=== PATIENT | female | born 1950 | race Caucasian/White ===

== ENCOUNTER 2019-05-12 10:43 | Inpatient (IN) ==
[2019-05-12] MEDS ORDERED: DEMEROL INJ IVP ONE ×2 (11:21→12:29)
[2019-05-12] MEDS ORDERED: ZOFRAN INJ 4 MG VIAL IVP ONE (11:21)
[2019-05-12] MEDS ORDERED: ZOFRAN INJ 4 MG VIAL ONE (11:33)
[2019-05-12] MEDS ORDERED: DEMEROL INJ ONE ×2 (11:35→12:27)
[2019-05-12 11:50] LABS: BASOPHILS % (AUTO) 0.3 % (0.2-1.0); EOSINOPHILS % (AUTO) 0.4 % (0.9-2.9); HEMATOCRIT 37.7 % (36.0-47.0); HEMOGLOBIN 12.4 g/dL (12.0-16.0); LYMPHOCYTES # (AUTO) 2.4 X10^3/uL (1.3-2.9); LYMPHOCYTES % (AUTO) 23.9 % (21.0-51.0); MEAN CORPUSCULAR HEMOGLOBIN 29.3 pg (27.0-34.0); MEAN CORPUSCULAR VOLUME 88.9 fL (80.0-100.0); MEAN PLATELET VOLUME 8.2 fL (7.4-11.0); MONOCYTES % (AUTO) 9.8 % (0.0-13.0); NEUTROPHILS # (AUTO) 6.7 x10^3/uL (2.2-4.8); NEUTROPHILS % (AUTO) 65.6 % (42.0-75.0); PLATELET COUNT 203 X10^3/uL (150.0-450.0); RED BLOOD COUNT 4.24 X10^6/uL (3.5-5.4); RED CELL DISTRIBUTION WIDTH 14.5 % (11.6-16.5); WHITE BLOOD COUNT 10.2 X10^3/uL (3.6-10.0)
--- NOTE | 2019-05-12 11:57 | ED.ABDFE ---
HPI Time Seen Time Seen by Provider: 05/12/19 11:15 PCP Primary Care Physician: kacy st Complaint Chief Complaint:: abd pain, nausea and vomiting started this am Self Treatment fo Chief Complaint: pheneragan, tramadol at 0230 this am Source History Provided: Patient Mode of arrival Mode of Arrival: Ambulatory Timing Onset of Chief Complaint: 05/12/19 PMH PMH Past Medical History: Yes Past Medical History: Diabetes and Hypertension Past Medical History Comment: fibromyalgia, spinal stenosis, osteoarthritis Past Surgical History: Yes Surgical History: Cholecystectomy Past Surgical History Comment: joint replacements, fracture, ankle fusion Family History History of Family Medical Conditions: No Social History Does patient currently use any type of tobacco product: No Have you used tobacco products in the last 12 months: No Type of Tobacco Use: None Does any household member use tobacco: No Do you use any recreational Drugs:: No infectious screening In the last 2 months have you had wt loss of >10#?: NO Have you had fever, night sweats or hemotysis?: No Have you traveled outside the country in the last 6 months?: No Isolation: Standard PE Vital Signs Vitals: Temperature 97.0 F Pulse Rate 61 Respiratory Rate 20 Blood Pressure 165/67 O2 Sat by Pulse Oximetry 97 ROR Labs Reviewed Result Diagrams: 05/12/19 11:40 05/12/19 11:40 Laboratory: WBC 10.2 X10^3/uL (3.6-10.0) H 05/12/19 11:40 RBC 4.24 X10^6/uL (3.5-5.4) 05/12/19 11:40 Hgb 12.4 g/dL (12.0-16.0) 05/12/19 11:40 Hct 37.7 % (36.0-47.0) 05/12/19 11:40 MCV 88.9 fL (80.0-100.0) 05/12/19 11:40 MCH 29.3 pg (27.0-34.0) 05/12/19 11:40 MCHC 33.0 g/dL (33.0-35.0) 05/12/19 11:40 RDW 14.5 % (11.6-16.5) 05/12/19 11:40 Plt Count 203 X10^3/uL (150.0-450.0) 05/12/19 11:40 MPV 8.2 fL (7.4-11.0) 05/12/19 11:40 Neut % (Auto) 65.6 % (42.0-75.0) 05/12/19 11:40 Lymph % (Auto) 23.9 % (21.0-51.0) 05/12/19 11:40 [place] % (Auto) 9.8 % (0.0-13.0) 05/12/19 11:40 Eos % (Auto) 0.4 % (0.9-2.9) L 05/12/19 11:40 Baso % (Auto) 0.3 % (0.2-1.0) 05/12/19 11:40 Neut # (Auto) 6.7 x10^3/uL (2.2-4.8) H 05/12/19 11:40 Lymph # (Auto) 2.4 X10^3/uL (1.3-2.9) 05/12/19 11:40 [place] # (Auto) 1.0 x10^3/uL (0.3-0.8) H 05/12/19 11:40 Eos # (Auto) 0.0 x10^3/uL (0.0-0.2) 05/12/19 11:40 Baso # (Auto) 0.0 X10^3/uL (0.0-0.1) 05/12/19 11:40 Absolute Nucleated RBC 0.0 /100WBC 05/12/19 11:40 Sodium 138 mmol/L (136-145) 05/12/19 11:40 Corrected Sodium 139 mmol/L (136-145) 05/12/19 11:40 Potassium 3.2 mmol/L (3.5-5.1) L 05/12/19 11:40 Chloride 102 mmol/L (98-107) 05/12/19 11:40 Carbon Dioxide 29.0 mmol/L (21-32) 05/12/19 11:40 BUN 16 mg/dL (7-18) 05/12/19 11:40 Creatinine 1.00 mg/dL (0.55-1.02) 05/12/19 11:40 Est GFR (MDRD) Af Amer > 60 (>60) 05/12/19 11:40 Est GFR (MDRD) Non-Af 58 (>60) L 05/12/19 11:40 Glucose 144 mg/dL (65-99) H 05/12/19 11:40 Calcium 8.9 mg/dL (8.5-10.1) 05/12/19 11:40 Corrected Calcium 9.6 mg/dL (8.5-10.1) 05/12/19 11:40 Total Bilirubin 0.70 mg/dL (0.2-1.0) 05/12/19 11:40 AST 18 Units/L (15-37) 05/12/19 11:40 ALT 23 Units/L (12-78) 05/12/19 11:40 Alkaline Phosphatase 95 Units/L (46-116) 05/12/19 11:40 Creatine Kinase 23 Units/L (26-192) L 05/12/19 11:40 CK-MB (CK-2) < 1.0 ng/mL (0-4.0) 05/12/19 11:40 CK/CKMB % Calc 4.4 % (<4) 05/12/19 11:40 Troponin I < 0.02 ng/mL (0-1.5) 05/12/19 11:40 Total Protein 6.7 g/dL (6.4-8.2) 05/12/19 11:40 Albumin 3.1 g/dL (3.4-5.0) L 05/12/19 11:40 Globulin 3.6 g/dL (2.5-4.5) 05/12/19 11:40 Albumin/Globulin Ratio 0.9 Ratio (1.1-2.1) L 05/12/19 11:40 Amylase > 650 Units/L (25-115) H 05/12/19 11:40 Lipase > 1500 Units/L (73-393) H 05/12/19 11:40 Opioid Opioid Risk Tool Age (Phi box if 16-45): No History of Preadolescent Sexual Abuse: No Total: 0 Total Score Risk Category: Low Risk Copyright: Dmitry BERGMAN predicting aberrant behaviors Diagnosis Discharge Problem: Acute pancreatitis Qualifiers: Pancreatitis type: unspecified pancreatitis type Acute pancreatitis complication: unspecified Qualified Code(s): K85.90 - Acute pancreatitis without necrosis or infection, unspecified Abdominal pain Qualifiers: Abdominal location: generalized Qualified Code(s): R10.84 - Generalized abdominal pain Instructions Forms: Excuse From Work Patient Portal
[2019-05-12 12:05] LABS: BLOOD UREA NITROGEN 16 mg/dL (7-18); CALCIUM 8.9 mg/dL (8.5-10.1); CHLORIDE 102 mmol/L (98-107); COR NA(FOR HYPERGLY) 139 mmol/L (136-145); SODIUM 138 mmol/L (136-145); TROPONIN I < 0.02 ng/mL (0-1.5); eGFR NON BLACK RACES 58 (>60)
--- NOTE | 2019-05-12 12:08 | CT ---
History: Abdominal pain with nausea and vomiting Study: CT abdomen and pelvis without contrast. Sagittal and coronal reformations were provided. Dose reduction techniques were utilized. Comparison: None Findings: The visualized lung bases are grossly clear. The gallbladder surgically absent. The liver and spleen and pancreas and adrenal glands are unremarkable. There is a small punctate calculus in the lower pole of the right kidney and a punctate calculus in the upper pole. There is a tiny punctate calculus in the upper pole of the left kidney. There is no hydronephrosis. Ureters are nondilated. There is no biliary dilatation. I do not visualize an abnormal appendix. There is no bowel distention. The uterus is unremarkable. There is no adnexal mass. There is no ascites or adenopathy. No significant diverticular disease is demonstrated. There is a small fat containing paraumbilical hernia. This is toward the left of midline through a defect measuring 1.6 cm width. There is diffuse lumbar degenerative disc disease relatively severe. The urinary bladder is unremarkable. Impression: Small left periumbilical fat containing ventral hernia Tiny punctate renal calculi without hydronephrosis Reported By:
[2019-05-12 12:10] LABS: ALANINE AMINOTRANSFERASE 23 Units/L (12-78); ALBUMIN 3.1 g/dL (3.4-5.0); ALKALINE PHOSPHATASE 95 Units/L (46-116); ASPARTATE AMINO TRANSFERASE 18 Units/L (15-37); CKMB % 4.4 % (<4); COR CA(FOR HYPOALB) 9.6 mg/dL (8.5-10.1); CREATINE KINASE 23 Units/L (26-192); CREATINE KINASE MB < 1.0 ng/mL (0-4.0); TOTAL PROTEIN 6.7 g/dL (6.4-8.2)
[2019-05-12] MEDS ORDERED: DEMEROL INJ IVP PRN (13:56)
[2019-05-12] MEDS ORDERED: INVANZ INJ 1 GM VIAL ONE (14:13)
[2019-05-12] MEDS ORDERED: NS 100 ML IV 100 ML IV ONE (14:13)
[2019-05-12] MEDS: INVANZ INJ 1 GM VIAL 0.5 GM in NS 50 ML IV 50 ML IV SCH ×2 (14:18→21:22)
[2019-05-12] MEDS: NS + KCL 20 MEQ/L 1,000 ML IV SCH (14:18)
[2019-05-12] MEDS ORDERED: PEPCID 20 MG IV PREMIX* 20 MG/50 ML BAG IV PRN (14:58)
[2019-05-12] MEDS ORDERED: MAGNESIUM SULFATE 1 GRAM/100 mL PREMIX 1 GM/100 ML BAG IV PRN (15:19)
[2019-05-12] MEDS: MORPHINE SULFATE INJ 2 MG INJ IVP PRN ×2 (15:42→19:30)
[2019-05-12 17:17] VITALS: BMI 35.4
--- NOTE | 2019-05-12 17:24 | DR.H&P ---
H&P - History & Physical for Day of: H&P Date: 05/12/19 - Chief Complaint Chief Complaint: NAUSEA, VOMITING, ABDOMINAL PAIN - History of Present Illness History of Present Illness: IS A 69 YEAR OLD PATIENT OF OURS WHO PRESENTED TO THE HOSPITAL WITH COMPLAINTS OF NAUSEA, VOMITING, AND ABDOMINAL PAIN. SYMPTOMS REPORTEDLY STARTED AROUND 2AM TODAY. ON ARRIVAL, VITALS WERE 97.0-60-20-100%-163/72. LABS WERE OBTAINED. ABNORMAL LAB VALUES INCLUDE THE FOLLOWING: WBC 10.2, POTASSIUM 3.2, GLUCOSE 144, MAGNESIUM 1.6, CREATINE KINASE 23, ALBUMIN 3.1, AMYLASE >650, LIPASE >1500. AN EKG WAS OBTAINED AND REVEALED: SINUS RHYTHM WITH HR 57. AN ABDOMEN/PELVIS CT WAS OBTAINED AND REVEALED: Small left periumbilical fat containing ventral hernia. Tiny punctate renal calculi without hydronephrosis. SHE WAS GIVEN DEMEROL 25MG IV X 2 DOSES AND ZOFRAN 4MG IV X 1 DOSE. SHE WAS ADMITTED TO THE HOSPITAL FOR FURTHER EVALUATION AND TREATMENT OF ACUTE PANCREATITIS AND ABDOMINAL PAIN. SHE WAS STARTED ON NORMAL SALINE WITH 20MEQ KCL AT 125ML/HR, PEPCID 20MG IV BID, MORPHINE SULGATE 1-2MG IV Q4H PRN PAIN, ZOFRAN 4MG IV Q6H PRN NAUSEA, AND INVANZ 0.5MG IV Q12H. WE WILL ALSO START THE POTASSIUM AND MAGNESIUM PROTOCOLS. WE WILL OBTAIN A URINALYSIS. OTHERWISE, WE WILL FOLLOW UP WITH AM LABS AND CONTINUE TO MONITOR. - Past Medical History Past Medical History: Hypertension, Diabetes - Past Surgical History Surgical History: Cholecystectomy, Ortho Surgery, Other - Family History Family Medical History: Diabetes Mellitus, Cancer, [place], Sudden Cardiac , Hypertension - Social History Does patient currently use any type of tobacco product: No Have you used tobacco products in the last 12 months: No Type of Tobacco Use: None Does any household member use tobacco: No Alcohol Use: None Drug Use: None Prescription drug monitoring program results: PDMP was not reviewed - Medications Home Medications: codeine Allergy (Verified 05/12/19 10:53) hydrocodone Allergy (Verified 05/12/19 10:53) iodine Allergy (Verified 05/12/19 10:53) latex Allergy (Verified 05/12/19 10:53) oxycodone Allergy (Verified 05/12/19 10:53) CONTINUE taking the following medications buspirone 10 mg PO BID 05/12/19 [History] cholecalciferol (vitamin D3) [Vitamin D3] unit 05/12/19 [History] duloxetine [Cymbalta] mg PO 05/12/19 [History] esomeprazole magnesium [Nexium] mg 05/12/19 [History] eszopiclone [Lunesta] mg 05/12/19 [History] fentanyl 05/12/19 [History] furosemide [Lasix] 05/12/19 [History] ibuprofen 05/12/19 [History] metformin 500 mg PO BID 05/12/19 [History] ondansetron HCl [Zofran] 05/12/19 [History] paroxetine HCl [Paxil] 20 mg PO QAM 05/12/19 [History] prednisone 05/12/19 [History] sucralfate [Carafate] 05/12/19 [History] tramadol-acetaminophen [Ultracet] tab 05/12/19 [History] valsartan-hydrochlorothiazide [Diovan HCT] tab 05/12/19 [History] - Review of Systems Constitutional: Weakness Eyes: No Symptoms Reported ENT: No Symptoms Reported Respiratory: No Symptoms Reported Cardiovascular: No Symptoms Reported Gastrointestinal: See HPI, Nausea, Vomiting, Abdominal Pain Genitourinary: No Symptoms Reported Musculoskeletal: No Symptoms Reported Skin: No Symptoms Reported Neurological: No Symptoms Reported - Physical Exam Vital Signs: Temperature 98.7 F Pulse Rate [Left Brachial] 70 Pulse Rate 61 Respiratory Rate 18 Blood Pressure [Left Arm] 118/57 Blood Pressure 165/67 O2 Sat by Pulse Oximetry 95 Oriented: Normal Eyes: Normal Ear: Normal Nose: Normal Throat: Normal Respiratory: Diminished Throughout Cardiovascular: Normal. negative: S3, S4, Murmur : Normal Auscultation: Bowel Sounds: Normal Palpation: Normal Tenderness: Diffuse, Moderate. negative: Rebound, Guarding, Rigidity Skin: Normal Musculoskeletal: Normal Psychiatric: Normal Mood Description: Calm Affect: Normal Speech Pattern: Clear - Assessment/Plan (1) Acute pancreatitis Qualifiers: Pancreatitis type: unspecified pancreatitis type Acute pancreatitis compl ication: unspecified Qualified Code(s): K85.90 - Acute pancreatitis without necrosis or infection, unspecified Status: Acute Plan: ADMIT, NORMAL SALINE WITH 20MEQ KCL AT 125ML/HR, PEPCID 20MG IV BID, MORPHINE SULFATE 1-2MG IV Q4H PRN PAIN, ZOFRAN 4MG IV Q6H PRN NAUSEA, AND INVANZ 0.5MG IV Q12H (2) Abdominal pain Qualifiers: Abdominal location: generalized Qualified Code(s): R10.84 - Generalized abdominal pain Status: Acute - Allergies Allergies/Adverse Reactions: Allergies Allergy/AdvReac Type Severity Reaction Status Date / Time codeine Allergy Verified 05/12/19 10:53 hydrocodone Allergy Verified 05/12/19 10:53 iodine Allergy Verified 05/12/19 10:53 latex Allergy Verified 05/12/19 10:53 oxycodone Allergy Verified 05/12/19 10:53
[2019-05-12] MEDS ORDERED: MORPHINE SULFATE INJ 2 MG INJ IVP PRN (19:46)
[2019-05-12] MEDS: ZOFRAN INJ 4 MG VIAL IVP PRN (22:00)
[2019-05-12 23:14] LABS: BILIRUBIN,URINE NEGATIVE (NEGATIVE); BLOOD/HEMOGLOBIN,URINE 1+ (NEGATIVE); GLUCOSE, URINE NEGATIVE (NEGATIVE); KETONES,URINE 1+ (NEGATIVE); LEUKOCYTE ESTERASE ,URINE 1+ (NEGATIVE); NITRITES,URINE NEGATIVE (NEGATIVE); PROTEIN,URINE 2+ (NEGATIVE); UROBILINOGEN,URINE NORMAL (NORMAL)
[2019-05-12 23:20] LABS: APPEARANCE,URINE CLEAR (CLEAR); BACTERIA,URINE NEGATIVE /HPF (NEGATIVE); COLOR,URINE AMBER (YELLOW); SQUAMOUS EPITHELIAL CELL,UR RARE /HPF (NEGATIVE)
[2019-05-13] MEDS ORDERED: ULTRAM ONE (01:49)
[2019-05-13] MEDS: NS + KCL 20 MEQ/L 1,000 ML IV SCH ×3 (01:50→14:27)
[2019-05-13] MEDS: ULTRAM PO PRN ×2 (02:03→13:16)
[2019-05-13 05:15] LABS: BASOPHILS % (AUTO) 0.3 % (0.2-1.0); EOSINOPHILS # (AUTO) 0.1 x10^3/uL (0.0-0.2); EOSINOPHILS % (AUTO) 0.4 % (0.9-2.9); HEMATOCRIT 33.2 % (36.0-47.0); HEMOGLOBIN 11.4 g/dL (12.0-16.0); LYMPHOCYTES # (AUTO) 1.9 X10^3/uL (1.3-2.9); LYMPHOCYTES % (AUTO) 13.6 % (21.0-51.0); MEAN CORPUSCULAR HEMOGLOBIN 33.4 pg (27.0-34.0); MEAN CORPUSCULAR HGB CONC 34.3 g/dL (33.0-35.0); MEAN CORPUSCULAR VOLUME 97.3 fL (80.0-100.0); MONOCYTES # (AUTO) 1.4 x10^3/uL (0.3-0.8); MONOCYTES % (AUTO) 10.3 % (0.0-13.0); NEUTROPHILS # (AUTO) 10.3 x10^3/uL (2.2-4.8); NEUTROPHILS % (AUTO) 75.4 % (42.0-75.0); PLATELET COUNT 184 X10^3/uL (150.0-450.0); RED BLOOD COUNT 3.42 X10^6/uL (3.5-5.4); RED CELL DISTRIBUTION WIDTH 14.8 % (11.6-16.5); WHITE BLOOD COUNT 13.7 X10^3/uL (3.6-10.0)
[2019-05-13 05:35] LABS: ALANINE AMINOTRANSFERASE 24 Units/L (12-78); ALBUMIN 2.5 g/dL (3.4-5.0); ALKALINE PHOSPHATASE 93 Units/L (46-116); AMYLASE 160 Units/L (25-115); ASPARTATE AMINO TRANSFERASE 29 Units/L (15-37); BLOOD UREA NITROGEN 15 mg/dL (7-18); CARBON DIOXIDE 23.6 mmol/L (21-32); CHLORIDE 105 mmol/L (98-107); COR CA(FOR HYPOALB) 9.2 mg/dL (8.5-10.1); CREATININE 0.99 mg/dL (0.55-1.02); LIPASE 433 Units/L (73-393); SODIUM 138 mmol/L (136-145); TOTAL PROTEIN 5.9 g/dL (6.4-8.2); eGFR NON BLACK RACES 59 (>60)
[2019-05-13 07:48] LABS: AMYLASE 905 Units/L (25-115)
[2019-05-13 07:49] LABS: LIPASE 8699 Units/L (73-393)
[2019-05-13] MEDS: OFIRMEV IV 1000 MG VIAL 1,000 MG/100 ML VIAL IV PRN ×3 (07:52→21:00)
[2019-05-13] MEDS: PROTONIX INJ 40 MG VIAL IVP SCH ×2 (09:13→20:42)
[2019-05-13] MEDS: PEPCID 20 MG IV PREMIX* 20 MG/50 ML BAG IV SCH ×2 (09:13→20:42)
[2019-05-13] MEDS ORDERED: PHARMACY CONSULT - DOSE _____ XX SCH (10:00)
[2019-05-13] MEDS: INVANZ INJ 1 GM VIAL 0.5 GM in NS 50 ML IV 50 ML IV SCH ×2 (10:30→20:42)
[2019-05-13] MEDS ORDERED: DEMEROL INJ IVP PRN (11:08)
[2019-05-13] MEDS ORDERED: DILAUDID INJ IVP PRN (13:36)
[2019-05-13] MEDS: ZOFRAN INJ 4 MG VIAL IVP PRN (19:19)
--- NOTE | 2019-05-13 20:49 | PCM.PROG ---
Progress Note - Progress Note for Day of Date of Exam: 05/13/19 - Subjective Subjective: WAS ADMITTED FOR ACUTE PANCREATITIS. TODAY, SHE IS ALERT AND ORIENTED, LYING IN BED ON MORNING ROUNDS. SHE CONTINUES WITH COMPLAINTS OF ABDOMINAL PAIN THIS MORNING, BUT REPORTS IMPROVEMENT SINCE ADMISSION. ON EXAMINATION, HEART IS REGULAR IN RATED AND RHYTHM. BILATERAL LUNGS ARE NOTED WITH DIMINISHED LUNG SOUNDS THROUGHOUT. ABDOMEN IS ROUND, SOFT, AND NOTED WITH DIFFUSE TENDERNESS. NORMAL BOWEL SOUNDS ARE NOTED IN ALL QUADRANTS. HER VITALS THIS MORNING ARE: 98.3-76-18-93%-136/68. LABS WERE OBTAINED. ABNORMAL LAB VALUES INCLUDE THE FOLLOWING: WBC 13.7, RBC 3.42, HGB 11.4, HCT 33.2, GLUCOSE 107, CALCIUM 8.0, TOTAL PROTEIN 5.9, ALBUMIN 2.5, AMYLASE 160, LIPASE 433. SHE IS CURRENTLY RECEIVING NORMAL SALINE WITH 20MEQ KCL AT 125ML/HR, PEPCID 20MG IV BID, MORPHINE SULFATE 1-2MG IV Q4H PRN PAIN, ZOFRAN 4MG IV Q6H PRN NAUSEA, AND INVANZ 0.5MG IV Q12H. WE WILL CONTINUE WITH CURRENT PLAN OF CARE TODAY AND START A CLEAR LIQUID DIET. OTHERWISE, WE WILL CONTINUE WITH CURRENT PLAN OF CARE TODAY. WE WILL FOLLOW UP WITH AM LABS AND CONTINUE TO MONITOR. - Past Medical Family Social History Past Med/Fam/Surg Hx: No changes since H&P Allergies: Allergies codeine Allergy (Verified 05/12/19 10:53) hydrocodone Allergy (Verified 05/12/19 10:53) iodine Allergy (Verified 05/12/19 10:53) latex Allergy (Verified 05/12/19 10:53) oxycodone Allergy (Verified 05/12/19 10:53) - Review of Systems ROS: No change since H&P - Vital Signs and I&O's Vital Signs: Temperature 98.0 F Pulse Rate [Left Brachial] 73 Pulse Rate 61 Respiratory Rate 18 Blood Pressure [Left Arm] 135/61 Blood Pressure 165/67 O2 Sat by Pulse Oximetry 93 Intake and Output: Intake & Output 05/11/19 05/12/19 05/13/19 05/14/19 11:59 11:59 11:59 11:59 Intake Total 520 / 520 1620 / 1620 Output Total 2 / 2 325 / 325 Balance 518 / 518 1295 / 1295 - Physical Exam Oriented: Normal Eyes: Normal Ear: Normal Nose: Normal Throat: Normal Respiratory: Generalized, Diminished Cardiovascular: Normal. negative: S3, S4, Murmur : Normal Auscultation: Bowel Sounds: Normal Palpation: Normal Tenderness: Diffuse, Mild. negative: Rebound, Guarding, Rigidity Skin: Normal Musculoskeletal: Normal Psychiatric: Normal Mood Description: Calm Affect: Normal Speech Pattern: Clear, Appropriate - Laboratory and Diagnostics Result Diagrams: 05/13/19 04:28 05/13/19 04:28 Labs: Laboratory WBC 13.7 X10^3/uL (3.6-10.0) H 05/13/19 04:28 RBC 3.42 X10^6/uL (3.5-5.4) L 05/13/19 04:28 Hgb 11.4 g/dL (12.0-16.0) L 05/13/19 04:28 Hct 33.2 % (36.0-47.0) L 05/13/19 04:28 MCV 97.3 fL (80.0-100.0) 05/13/19 04:28 MCH 33.4 pg (27.0-34.0) 05/13/19 04:28 MCHC 34.3 g/dL (33.0-35.0) 05/13/19 04:28 RDW 14.8 % (11.6-16.5) 05/13/19 04:28 Plt Count 184 X10^3/uL (150.0-450.0) 05/13/19 04:28 MPV 9.0 fL (7.4-11.0) 05/13/19 04:28 Neut % (Auto) 75.4 % (42.0-75.0) H 05/13/19 04:28 Lymph % (Auto) 13.6 % (21.0-51.0) L 05/13/19 04:28 [place] % (Auto) 10.3 % (0.0-13.0) 05/13/19 04:28 Eos % (Auto) 0.4 % (0.9-2.9) L 05/13/19 04:28 Baso % (Auto) 0.3 % (0.2-1.0) 05/13/19 04:28 Neut # (Auto) 10.3 x10^3/uL (2.2-4.8) H 05/13/19 04:28 Lymph # (Auto) 1.9 X10^3/uL (1.3-2.9) 05/13/19 04:28 [place] # (Auto) 1.4 x10^3/uL (0.3-0.8) H 05/13/19 04:28 Eos # (Auto) 0.1 x10^3/uL (0.0-0.2) 05/13/19 04:28 Baso # (Auto) 0.0 X10^3/uL (0.0-0.1) 05/13/19 04:28 Absolute Nucleated RBC 0.0 /100WBC 05/13/19 04:28 Sodium 138 mmol/L (136-145) 05/13/19 04:28 Corrected Sodium TNP 05/13/19 04:28 Potassium 4.0 mmol/L (3.5-5.1) 05/13/19 04:28 Chloride 105 mmol/L (98-107) 05/13/19 04:28 Carbon Dioxide 23.6 mmol/L (21-32) 05/13/19 04:28 BUN 15 mg/dL (7-18) 05/13/19 04:28 Creatinine 0.99 mg/dL (0.55-1.02) 05/13/19 04:28 Est GFR (MDRD) Af Amer > 60 (>60) 05/13/19 04:28 Est GFR (MDRD) Non-Af 59 (>60) 05/13/19 04:28 Glucose 107 mg/dL (65-99) H 05/13/19 04:28 POC Glucose (mg/dL) 110 mg/dL (65-99) H 05/13/19 16:55 Calcium 8.0 mg/dL (8.5-10.1) L 05/13/19 04:28 Corrected Calcium 9.2 mg/dL (8.5-10.1) 05/13/19 04:28 Magnesium 1.6 mg/dL (1.7-2.9) L 05/12/19 11:40 Total Bilirubin 0.70 mg/dL (0.2-1.0) 05/13/19 04:28 AST 29 Units/L (15-37) 05/13/19 04:28 ALT 24 Units/L (12-78) 05/13/19 04:28 Alkaline Phosphatase 93 Units/L (46-116) 05/13/19 04:28 Creatine Kinase 23 Units/L (26-192) L 05/12/19 11:40 CK-MB (CK-2) < 1.0 ng/mL (0-4.0) 05/12/19 11:40 CK/CKMB % Calc 4.4 % (<4) 05/12/19 11:40 Troponin I < 0.02 ng/mL (0-1.5) 05/12/19 11:40 Total Protein 5.9 g/dL (6.4-8.2) L 05/13/19 04:28 Albumin 2.5 g/dL (3.4-5.0) L 05/13/19 04:28 Globulin 3.4 g/dL (2.5-4.5) 05/13/19 04:28 Albumin/Globulin Ratio 0.7 Ratio (1.1-2.1) L 05/13/19 04:28 Triglycerides 102 mg/dL (0-150) 05/13/19 04:28 Cholesterol 149 mg/dL (0-200) 05/13/19 04:28 LDL Cholesterol, Calc 55 mg/dL (0-100) 05/13/19 04:28 HDL Cholesterol 74 mg/dL (40-60) H 05/13/19 04:28 Cholesterol/HDL Ratio 2.0 (0.0-5.0) 05/13/19 04:28 Amylase 160 Units/L (25-115) H 05/13/19 04:28 Lipase 433 Units/L (73-393) H 05/13/19 04:28 Specimen Type Clean catch urine 05/12/19 22:45 Urine Color [place] (YELLOW) 05/12/19 22:45 Urine Appearance Clear (CLEAR) 05/12/19 22:45 Urine pH 6.0 (5.0 - 8.0) 05/12/19 22:45 Ur Specific [place] 1.025 (1.000-1.030) 05/12/19 22:45 Urine Protein 2+ (NEGATIVE) 05/12/19 22:45 Urine Glucose (UA) Negative (NEGATIVE) 05/12/19 22:45 Urine Ketones 1+ (NEGATIVE) 05/12/19 22:45 Urine Occult Blood 1+ (NEGATIVE) 05/12/19 22:45 Urine Nitrite Negative (NEGATIVE) 05/12/19 22:45 Urine Bilirubin Negative (NEGATIVE) 05/12/19 22:45 Urine Urobilinogen Normal (NORMAL) 05/12/19 22:45 Ur Leukocyte Esterase 1+ (NEGATIVE) 05/12/19 22:45 Urine RBC 3-5 /HPF (0-3) A 05/12/19 22:45 Urine WBC 5-10 /HPF (0-5) A 05/12/19 22:45 Ur Squamous Epith Cells Rare /HPF (NEGATIVE) 05/12/19 22:45 Urine Bacteria Negative /HPF (NEGATIVE) 05/12/19 22:45 Ur Culture Indicated? No/not indicated 05/12/19 22:45 - Plan (1) Acute pancreatitis Status: Acute Qualifiers: Pancreatitis type: unspecified pancreatitis type Acute pancreatitis complication: unspecified Qualified Code(s): K85.90 - Acute pancreatitis without necrosis or infection, unspecified Plan: NORMAL SALINE WITH 20MEQ KCL AT 125ML/HR, PEPCID 20MG IV BID, MORPHINE SULFATE 1-2MG IV Q4H PRN PAIN, ZOFRAN 4MG IV Q6H PRN NAUSEA, AND INVANZ 0.5MG IV Q12H (2) Abdominal pain Status: Acute Qualifiers: Abdominal location: generalized Qualified Code(s): R10.84 - Generalized abdominal pain
[2019-05-14] MEDS: RESTORIL CAP 15 MG PO PRN ×2 (00:03→21:14)
[2019-05-14 04:44] LABS: BASOPHILS % (AUTO) 0.2 % (0.2-1.0); EOSINOPHILS # (AUTO) 0.1 x10^3/uL (0.0-0.2); EOSINOPHILS % (AUTO) 0.4 % (0.9-2.9); HEMATOCRIT 34.6 % (36.0-47.0); HEMOGLOBIN 11.7 g/dL (12.0-16.0); LYMPHOCYTES # (AUTO) 1.1 X10^3/uL (1.3-2.9); LYMPHOCYTES % (AUTO) 7.8 % (21.0-51.0); MEAN CORPUSCULAR HEMOGLOBIN 32.5 pg (27.0-34.0); MEAN CORPUSCULAR HGB CONC 33.8 g/dL (33.0-35.0); MEAN CORPUSCULAR VOLUME 96.2 fL (80.0-100.0); MEAN PLATELET VOLUME 8.9 fL (7.4-11.0); MONOCYTES % (AUTO) 7.3 % (0.0-13.0); NEUTROPHILS # (AUTO) 11.4 x10^3/uL (2.2-4.8); NEUTROPHILS % (AUTO) 84.3 % (42.0-75.0); PLATELET COUNT 179 X10^3/uL (150.0-450.0); RED CELL DISTRIBUTION WIDTH 14.7 % (11.6-16.5); WHITE BLOOD COUNT 13.5 X10^3/uL (3.6-10.0)
[2019-05-14 04:55] LABS: ALANINE AMINOTRANSFERASE 29 Units/L (12-78); ALBUMIN 2.4 g/dL (3.4-5.0); ALKALINE PHOSPHATASE 114 Units/L (46-116); AMYLASE 33 Units/L (25-115); ASPARTATE AMINO TRANSFERASE 36 Units/L (15-37); BLOOD UREA NITROGEN 13 mg/dL (7-18); CALCIUM 8.2 mg/dL (8.5-10.1); CARBON DIOXIDE 22.8 mmol/L (21-32); CHLORIDE 104 mmol/L (98-107); COR CA(FOR HYPOALB) 9.5 mg/dL (8.5-10.1); COR NA(FOR HYPERGLY) 136 mmol/L (136-145); CREATININE 0.94 mg/dL (0.55-1.02); LIPASE 103 Units/L (73-393); MAGNESIUM 1.9 mg/dL (1.7-2.9); SODIUM 136 mmol/L (136-145); TOTAL PROTEIN 6.2 g/dL (6.4-8.2); eGFR NON BLACK RACES > 60 (>60)
[2019-05-14] MEDS: NS + KCL 20 MEQ/L 1,000 ML IV SCH ×2 (05:49→15:34)
[2019-05-14] MEDS: INVANZ INJ 1 GM VIAL 0.5 GM in NS 50 ML IV 50 ML IV SCH ×2 (08:25→21:05)
[2019-05-14] MEDS: OFIRMEV IV 1000 MG VIAL 1,000 MG/100 ML VIAL IV PRN ×2 (08:30→21:50)
[2019-05-14] MEDS: PROTONIX INJ 40 MG VIAL IVP SCH ×2 (08:30→21:14)
[2019-05-14] MEDS: PEPCID 20 MG IV PREMIX* 20 MG/50 ML BAG IV SCH ×2 (08:30→21:14)
[2019-05-14] MEDS: ZOFRAN INJ 4 MG VIAL IVP PRN (08:35)
--- NOTE | 2019-05-14 10:16 | PCM.PROG ---
Progress Note - Progress Note for Day of Date of Exam: 05/14/19 - Subjective Subjective: WAS ADMITTED FOR ACUTE PANCREATITIS. TODAY, SHE IS ALERT AND ORIENTED, LYING IN BED ON MORNING ROUNDS. SHE CONTINUES WITH COMPLAINTS OF ABDOMINAL PAIN AND NAUSEA THIS MORNING. SHE REPORTS THAT SYMPTOMS GOT WORSE AFTER DRINKING APPLE JUICE THIS MORNING. ON EXAMINATION, HEART IS REGULAR IN RATED AND RHYTHM. BILATERAL LUNGS ARE NOTED WITH DIMINISHED LUNG SOUNDS THROUGHOUT. ABDOMEN IS ROUND, SOFT, AND NOTED WITH DIFFUSE TENDERNESS. NORMAL BOWEL SOUNDS ARE NOTED IN ALL QUADRANTS. HER VITALS THIS MORNING ARE: 98.1-71-24-95%-142/63. LABS WERE OBTAINED. ABNORMAL LAB VALUES INCLUDE THE FOLLOWING: WBC 13.5, HGB 11.7, HCT 34.6, GLUCOSE 114, CALCIUM 8.2, TOTAL PROTEIN 6.2, ALBUMIN 2.4. SHE IS CURRENTLY RECEIVING NORMAL SALINE WITH 20MEQ KCL AT 125ML/HR, PEPCID 20MG IV BID, MORPHINE SULFATE 1-2MG IV Q4H PRN PAIN, DEMEROL 25MG IV Q4H PRN PAIN, ZOFRAN 4MG IV Q6H PRN NAUSEA, AND INVANZ 0.5MG IV Q12H. WE WILL CONTINUE WITH CURRENT PLAN OF CARE TODAY. WE WILL REPEAT AN ABDOMEN/PELVIS CT WITHOUT CONTRAST IN THE MORNING.OTHERWISE, WE WILL FOLLOW UP WITH AM LABS AND CONTINUE TO MONITOR. - Past Medical Family Social History Past Med/Fam/Surg Hx: No changes since H&P Allergies: Allergies codeine Allergy (Verified 05/12/19 10:53) hydrocodone Allergy (Verified 05/12/19 10:53) iodine Allergy (Verified 05/12/19 10:53) latex Allergy (Verified 05/12/19 10:53) oxycodone Allergy (Verified 05/12/19 10:53) - Review of Systems ROS: No change since H&P - Vital Signs and I&O's Vital Signs: Temperature 98.9 F Pulse Rate [Left Brachial] 71 Pulse Rate 61 Respiratory Rate 18 Blood Pressure [Left Arm] 144/79 Blood Pressure 165/67 O2 Sat by Pulse Oximetry 96 Intake and Output: Intake & Output 05/11/19 05/12/19 05/13/19 05/14/19 11:59 11:59 11:59 11:59 Intake Total 520 / 520 3525 / 3525 Output Total 2 / 2 325 / 325 Balance 518 / 518 3200 / 3200 - Physical Exam Oriented: Normal Eyes: Normal Ear: Normal Nose: Normal Throat: Normal Respiratory: Generalized, Diminished Cardiovascular: Normal. negative: S3, S4, Murmur : Normal Auscultation: Bowel Sounds: Normal Palpation: Normal Tenderness: Diffuse, Mild. negative: Rebound, Guarding, Rigidity Skin: Normal Musculoskeletal: Normal Psychiatric: Normal Mood Description: Calm Affect: Normal Speech Pattern: Clear, Appropriate - Laboratory and Diagnostics Result Diagrams: 05/14/19 04:10 05/14/19 04:10 Labs: Laboratory WBC 13.5 X10^3/uL (3.6-10.0) H 05/14/19 04:10 RBC 3.60 X10^6/uL (3.5-5.4) 05/14/19 04:10 Hgb 11.7 g/dL (12.0-16.0) L 05/14/19 04:10 Hct 34.6 % (36.0-47.0) L 05/14/19 04:10 MCV 96.2 fL (80.0-100.0) 05/14/19 04:10 MCH 32.5 pg (27.0-34.0) 05/14/19 04:10 MCHC 33.8 g/dL (33.0-35.0) 05/14/19 04:10 RDW 14.7 % (11.6-16.5) 05/14/19 04:10 Plt Count 179 X10^3/uL (150.0-450.0) 05/14/19 04:10 MPV 8.9 fL (7.4-11.0) 05/14/19 04:10 Neut % (Auto) 84.3 % (42.0-75.0) H 05/14/19 04:10 Lymph % (Auto) 7.8 % (21.0-51.0) L 05/14/19 04:10 [place] % (Auto) 7.3 % (0.0-13.0) 05/14/19 04:10 Eos % (Auto) 0.4 % (0.9-2.9) L 05/14/19 04:10 Baso % (Auto) 0.2 % (0.2-1.0) 05/14/19 04:10 Neut # (Auto) 11.4 x10^3/uL (2.2-4.8) H 05/14/19 04:10 Lymph # (Auto) 1.1 X10^3/uL (1.3-2.9) L 05/14/19 04:10 [place] # (Auto) 1.0 x10^3/uL (0.3-0.8) H 05/14/19 04:10 Eos # (Auto) 0.1 x10^3/uL (0.0-0.2) 05/14/19 04:10 Baso # (Auto) 0.0 X10^3/uL (0.0-0.1) 05/14/19 04:10 Absolute Nucleated RBC 0.0 /100WBC 05/14/19 04:10 Sodium 136 mmol/L (136-145) 05/14/19 04:10 Corrected Sodium 136 mmol/L (136-145) 05/14/19 04:10 Potassium 4.6 mmol/L (3.5-5.1) 05/14/19 04:10 Chloride 104 mmol/L (98-107) 05/14/19 04:10 Carbon Dioxide 22.8 mmol/L (21-32) 05/14/19 04:10 BUN 13 mg/dL (7-18) 05/14/19 04:10 Creatinine 0.94 mg/dL (0.55-1.02) 05/14/19 04:10 Est GFR (MDRD) Af Amer > 60 (>60) 05/14/19 04:10 Est GFR (MDRD) Non-Af > 60 (>60) 05/14/19 04:10 Glucose 114 mg/dL (65-99) H 05/14/19 04:10 POC Glucose (mg/dL) 99 mg/dL (65-99) 05/14/19 06:23 Calcium 8.2 mg/dL (8.5-10.1) L 05/14/19 04:10 Corrected Calcium 9.5 mg/dL (8.5-10.1) 05/14/19 04:10 Magnesium 1.9 mg/dL (1.7-2.9) 05/14/19 04:10 Total Bilirubin 0.80 mg/dL (0.2-1.0) 05/14/19 04:10 AST 36 Units/L (15-37) 05/14/19 04:10 ALT 29 Units/L (12-78) 05/14/19 04:10 Alkaline Phosphatase 114 Units/L (46-116) 05/14/19 04:10 Creatine Kinase 23 Units/L (26-192) L 05/12/19 11:40 CK-MB (CK-2) < 1.0 ng/mL (0-4.0) 05/12/19 11:40 CK/CKMB % Calc 4.4 % (<4) 05/12/19 11:40 Troponin I < 0.02 ng/mL (0-1.5) 05/12/19 11:40 Total Protein 6.2 g/dL (6.4-8.2) L 05/14/19 04:10 Albumin 2.4 g/dL (3.4-5.0) L 05/14/19 04:10 Globulin 3.8 g/dL (2.5-4.5) 05/14/19 04:10 Albumin/Globulin Ratio 0.6 Ratio (1.1-2.1) L 05/14/19 04:10 Triglycerides 102 mg/dL (0-150) 05/13/19 04:28 Cholesterol 149 mg/dL (0-200) 05/13/19 04:28 LDL Cholesterol, Calc 55 mg/dL (0-100) 05/13/19 04:28 HDL Cholesterol 74 mg/dL (40-60) H 05/13/19 04:28 Cholesterol/HDL Ratio 2.0 (0.0-5.0) 05/13/19 04:28 Amylase 33 Units/L (25-115) 05/14/19 04:10 Lipase 103 Units/L (73-393) 05/14/19 04:10 Specimen Type Clean catch urine 05/12/19 22:45 Urine Color Cely (YELLOW) 05/12/19 22:45 Urine Appearance Clear (CLEAR) 05/12/19 22:45 Urine pH 6.0 (5.0 - 8.0) 05/12/19 22:45 Ur Specific [place] 1.025 (1.000-1.030) 05/12/19 22:45 Urine Protein 2+ (NEGATIVE) 05/12/19 22:45 Urine Glucose (UA) Negative (NEGATIVE) 05/12/19 22:45 Urine Ketones 1+ (NEGATIVE) 05/12/19 22:45 Urine Occult Blood 1+ (NEGATIVE) 05/12/19 22:45 Urine Nitrite Negative (NEGATIVE) 05/12/19 22:45 Urine Bilirubin Negative (NEGATIVE) 05/12/19 22:45 Urine Urobilinogen Normal (NORMAL) 05/12/19 22:45 Ur Leukocyte Esterase 1+ (NEGATIVE) 05/12/19 22:45 Urine RBC 3-5 /HPF (0-3) A 05/12/19 22:45 Urine WBC 5-10 /HPF (0-5) A 05/12/19 22:45 Ur Squamous Epith Cells Rare /HPF (NEGATIVE) 05/12/19 22:45 Urine Bacteria Negative /HPF (NEGATIVE) 05/12/19 22:45 Ur Culture Indicated? No/not indicated 05/12/19 22:45 - Plan (1) Acute pancreatitis Status: Acute Qualifiers: Pancreatitis type: unspecified pancreatitis type Acute pancreatitis complication: unspecified Qualified Code(s): K85.90 - Acute pancreatitis without necrosis or infection, unspecified Plan: NORMAL SALINE WITH 20MEQ KCL AT 125ML/HR, PEPCID 20MG IV BID, MORPHINE SULFATE 1-2MG IV Q4H PRN PAIN, ZOFRAN 4MG IV Q6H PRN NAUSEA, AND INVANZ 0.5MG IV Q12H (2) Abdominal pain Status: Acute Qualifiers: Abdominal location: generalized Qualified Code(s): R10.84 - Generalized abdominal pain
[2019-05-15] MEDS: NS + KCL 20 MEQ/L 1,000 ML IV SCH ×2 (00:50→10:27)
[2019-05-15] MEDS ORDERED: GLUTOSE 15 GEL ORAL PO PRN (05:46)
[2019-05-15] MEDS ORDERED: GLUTOSE 15 GEL ORAL PO ONE (05:48)
[2019-05-15 06:59] LABS: ALANINE AMINOTRANSFERASE 23 Units/L (12-78); ALBUMIN 1.9 g/dL (3.4-5.0); ALKALINE PHOSPHATASE 104 Units/L (46-116); AMYLASE 12 Units/L (25-115); ASPARTATE AMINO TRANSFERASE 25 Units/L (15-37); BLOOD UREA NITROGEN 13 mg/dL (7-18); CALCIUM 8.1 mg/dL (8.5-10.1); CARBON DIOXIDE 19.1 mmol/L (21-32); CHLORIDE 108 mmol/L (98-107); COR CA(FOR HYPOALB) 9.8 mg/dL (8.5-10.1); CREATININE 0.79 mg/dL (0.55-1.02); LIPASE 49 Units/L (73-393); SODIUM 137 mmol/L (136-145); TOTAL PROTEIN 5.6 g/dL (6.4-8.2); eGFR NON BLACK RACES > 60 (>60)
[2019-05-15 07:45] LABS: BASOPHILS # (AUTO) 0.1 X10^3/uL (0.0-0.1); BASOPHILS % (AUTO) 0.6 % (0.2-1.0); EOSINOPHILS # (AUTO) 0.1 x10^3/uL (0.0-0.2); EOSINOPHILS % (AUTO) 1.1 % (0.9-2.9); HEMATOCRIT 32.9 % (36.0-47.0); HEMOGLOBIN 11.1 g/dL (12.0-16.0); LYMPHOCYTES % (AUTO) 16.7 % (21.0-51.0); MEAN CORPUSCULAR HEMOGLOBIN 31.4 pg (27.0-34.0); MEAN CORPUSCULAR HGB CONC 33.8 g/dL (33.0-35.0); MEAN CORPUSCULAR VOLUME 92.9 fL (80.0-100.0); MEAN PLATELET VOLUME 9.7 fL (7.4-11.0); MONOCYTES # (AUTO) 0.8 x10^3/uL (0.3-0.8); MONOCYTES % (AUTO) 6.3 % (0.0-13.0); NEUTROPHILS # (AUTO) 9.1 x10^3/uL (2.2-4.8); NEUTROPHILS % (AUTO) 75.3 % (42.0-75.0); PLATELET COUNT 147 X10^3/uL (150.0-450.0); RED BLOOD COUNT 3.55 X10^6/uL (3.5-5.4); RED CELL DISTRIBUTION WIDTH 14.7 % (11.6-16.5); WHITE BLOOD COUNT 12.1 X10^3/uL (3.6-10.0)
[2019-05-15 07:47] LABS: PLATELET MORPHOLOGY COMMENT NORMAL (NORMAL)
[2019-05-15] MEDS: INVANZ INJ 1 GM VIAL 0.5 GM in NS 50 ML IV 50 ML IV SCH (09:21)
[2019-05-15] MEDS: PEPCID 20 MG IV PREMIX* 20 MG/50 ML BAG IV SCH ×2 (09:21→20:44)
[2019-05-15] MEDS: PROTONIX INJ 40 MG VIAL IVP SCH ×2 (09:21→20:45)
[2019-05-15] MEDS ORDERED: D50W ABBOJECT SYR ONE (11:40)
--- NOTE | 2019-05-15 15:21 | CT ---
History: Pancreatitis and pain Exam: CT abdomen and pelvis without contrast Comparison: 05/12/2019 Technique: Axial spiral images were obtained from lung bases through the pubic symphysis without contrast. Automated dose control was utilized. Findings: There are small bibasilar pleural effusions posteriorly with hazy subsegmental opacities scattered along the lung bases anteriorly and posteriorly which is more prominent . There is mild hypertrophy of the caudate and left lobes of the liver with fatty replacement throughout. The gallbladder has been removed with clips in the gallbladder fossa. The pancreas and bile ducts are normal. There is some questionable very minimal edema scattered throughout the pancreas and minimal peripancreatic stranding which is slightly more prominent along the head region . There is associated minimal stranding and a tiny amount of fluid extending inferiorly along the pararenal space which is slightly more prominent . There is a tiny amount of fluid in the left paracolic region which is more apparent. No focal fluid collection or mass can be seen . The adrenals are normal . There is perirenal scarring around both kidneys with cortical thinning throughout. There are small 1-2 mm stones scattered in the right kidney inferiorly which are unchanged with no hydronephrosis. The ureters are normal caliber . The bladder is unremarkable. The uterus is atrophic and partially calcified with no adnexal mass . No adenopathy is seen. The bones are intact . The mesentery is unremarkable. The appendix is not well visualized with no pericecal inflammation . No adenopathy is seen. The bones are intact. IMPRESSION: Probable mild pancreatitis with minimal stranding and edema in the pararenal space extending inferiorly and a tiny amount of fluid in the left paracolic region which is more apparent . No focal fluid collection or mass is seen, recommend clinical follow-up . Previous cholecystectomy and chronic liver changes with a normal biliary tree which is unchanged . Moderate perirenal scarring with throughout both kidneys and tiny renal stones on the right which is unchanged with no hydronephrosis or renal mass. Small bibasilar pleural effusions and associated bibasilar atelectasis or infiltrates scattered along the lung bases which is more prominent. Atrophic uterus with no pelvic mass or inflammation. Reported By:
[2019-05-15] MEDS ORDERED: AYR NASAL DROPS PRN (16:36)
[2019-05-15] MEDS: LASIX IVP SCH (17:08)
[2019-05-15] MEDS: OFIRMEV IV 1000 MG VIAL 1,000 MG/100 ML VIAL IV PRN (19:29)
[2019-05-16] MEDS: LASIX IVP SCH (04:46)
[2019-05-16 06:08] LABS: BASOPHILS % (AUTO) 0.2 % (0.2-1.0); EOSINOPHILS # (AUTO) 0.2 x10^3/uL (0.0-0.2); EOSINOPHILS % (AUTO) 2.8 % (0.9-2.9); HEMATOCRIT 30.5 % (36.0-47.0); LYMPHOCYTES # (AUTO) 1.4 X10^3/uL (1.3-2.9); LYMPHOCYTES % (AUTO) 24.5 % (21.0-51.0); MEAN CORPUSCULAR HEMOGLOBIN 35.4 pg (27.0-34.0); MEAN CORPUSCULAR VOLUME 98.3 fL (80.0-100.0); MEAN PLATELET VOLUME 8.3 fL (7.4-11.0); MONOCYTES # (AUTO) 0.5 x10^3/uL (0.3-0.8); MONOCYTES % (AUTO) 8.3 % (0.0-13.0); NEUTROPHILS # (AUTO) 3.7 x10^3/uL (2.2-4.8); NEUTROPHILS % (AUTO) 64.2 % (42.0-75.0); PLATELET COUNT 204 X10^3/uL (150.0-450.0); RED CELL DISTRIBUTION WIDTH 14.7 % (11.6-16.5); WHITE BLOOD COUNT 5.7 X10^3/uL (3.6-10.0)
[2019-05-16 06:20] LABS: ALANINE AMINOTRANSFERASE 21 Units/L (12-78); ALKALINE PHOSPHATASE 109 Units/L (46-116); AMYLASE 10 Units/L (25-115); ASPARTATE AMINO TRANSFERASE 20 Units/L (15-37); BLOOD UREA NITROGEN 10 mg/dL (7-18); CALCIUM 8.3 mg/dL (8.5-10.1); CARBON DIOXIDE 23.4 mmol/L (21-32); CHLORIDE 106 mmol/L (98-107); COR CA(FOR HYPOALB) 9.9 mg/dL (8.5-10.1); CREATININE 0.89 mg/dL (0.55-1.02); LIPASE 39 Units/L (73-393); SODIUM 140 mmol/L (136-145); eGFR NON BLACK RACES > 60 (>60)
[2019-05-16] MEDS: INVANZ INJ 1 GM VIAL 1 GM in NS 100 ML IV + SPIKE MINIBAG* 100 ML IV SCH (09:13)
[2019-05-16] MEDS: PEPCID 20 MG IV PREMIX* 20 MG/50 ML BAG IV SCH ×2 (09:13→21:24)
[2019-05-16] MEDS: PROTONIX INJ 40 MG VIAL IVP SCH ×2 (09:14→21:24)
[2019-05-16] MEDS ORDERED: NexIUM PO SCH (15:00)
[2019-05-16] MEDS: CYMBALTA PO SCH (17:38)
[2019-05-16] MEDS: CARAFATE PO SCH ×2 (17:39→21:23)
[2019-05-16] MEDS: MAGIC MOUTHWASH MT SCH ×2 (17:39→21:25)
[2019-05-16] MEDS: ULTRAM PO PRN (17:40)
[2019-05-16] MEDS ORDERED: TYLENOL 325 MG TAB PO PRN (17:48)
[2019-05-16] MEDS ORDERED: ZOCOR TAB 40 MG PO SCH (21:00)
[2019-05-16] MEDS: BUSPAR PO SCH (21:23)
[2019-05-17] MEDS: CARAFATE PO SCH ×2 (05:49→10:00)
[2019-05-17 06:05] LABS: BASOPHILS % (AUTO) 0.4 % (0.2-1.0); EOSINOPHILS # (AUTO) 0.2 x10^3/uL (0.0-0.2); EOSINOPHILS % (AUTO) 3.6 % (0.9-2.9); HEMATOCRIT 31.2 % (36.0-47.0); HEMOGLOBIN 10.9 g/dL (12.0-16.0); LYMPHOCYTES # (AUTO) 1.6 X10^3/uL (1.3-2.9); LYMPHOCYTES % (AUTO) 31.3 % (21.0-51.0); MEAN CORPUSCULAR HEMOGLOBIN 34.9 pg (27.0-34.0); MEAN CORPUSCULAR HGB CONC 34.8 g/dL (33.0-35.0); MEAN CORPUSCULAR VOLUME 100.3 fL (80.0-100.0); MONOCYTES # (AUTO) 0.6 x10^3/uL (0.3-0.8); MONOCYTES % (AUTO) 12.1 % (0.0-13.0); NEUTROPHILS # (AUTO) 2.7 x10^3/uL (2.2-4.8); NEUTROPHILS % (AUTO) 52.6 % (42.0-75.0); PLATELET COUNT 227 X10^3/uL (150.0-450.0); RED BLOOD COUNT 3.11 X10^6/uL (3.5-5.4); RED CELL DISTRIBUTION WIDTH 14.6 % (11.6-16.5); WHITE BLOOD COUNT 5.2 X10^3/uL (3.6-10.0)
[2019-05-17 06:20] LABS: ALANINE AMINOTRANSFERASE 21 Units/L (12-78); ALKALINE PHOSPHATASE 110 Units/L (46-116); AMYLASE 8 Units/L (25-115); ASPARTATE AMINO TRANSFERASE 27 Units/L (15-37); BLOOD UREA NITROGEN 9 mg/dL (7-18); CALCIUM 8.6 mg/dL (8.5-10.1); CARBON DIOXIDE 24.5 mmol/L (21-32); CHLORIDE 106 mmol/L (98-107); COR CA(FOR HYPOALB) 10.2 mg/dL (8.5-10.1); CREATININE 0.92 mg/dL (0.55-1.02); LIPASE 35 Units/L (73-393); SODIUM 140 mmol/L (136-145); eGFR NON BLACK RACES > 60 (>60)
[2019-05-17] MEDS ORDERED: HYDROCHLOROTHIAZIDE 12.5 MG CAP PO SCH (09:00)
[2019-05-17] MEDS ORDERED: DIOVAN TAB 160 MG PO SCH (09:00)
[2019-05-17] MEDS ORDERED: PREDNISONE TAB 5 MG PO SCH (09:00)
[2019-05-17] MEDS ORDERED: MICRO K EXTEN CAP 10 MEQ PO SCH (09:00)
[2019-05-17] MEDS: INVANZ INJ 1 GM VIAL 1 GM in NS 100 ML IV + SPIKE MINIBAG* 100 ML IV SCH (09:37)
[2019-05-17] MEDS: PEPCID 20 MG IV PREMIX* 20 MG/50 ML BAG IV SCH (09:37)
[2019-05-17] MEDS: BUSPAR PO SCH (09:39)
[2019-05-17] MEDS: PROTONIX INJ 40 MG VIAL IVP SCH (09:40)
[2019-05-17] MEDS: MAGIC MOUTHWASH MT SCH (09:41)
[2019-05-17] MEDS: CYMBALTA PO SCH (09:44)
[2019-05-17 11:47] VITALS: BP 119/57
== END 2019-05-17 11:50 | disposition home or self-care (01) | DRG 440 ==
LOC: ER 10:45 → MED/SURG 14:03
PROVIDERS: ADMIT Internal Medicine; ATTEND Internal Medicine
DX: R11.2 Nausea with vomiting, unspecified; E11.65 Type 2 diabetes mellitus with hyperglycemia; R94.31 Abnormal electrocardiogram [ECG] [EKG]; R10.84 Generalized abdominal pain; I10 Essential (primary) hypertension; R26.89 Other abnormalities of gait and mobility; K85.90 Acute pancreatitis without necrosis or infection, unspecified
CPT/HCPCS: 36415; 74176; 80053; 80061; 81001; 82150; 82550; 82553; 83690; 83735; 84484; 85025; 93005; 96365; 96374; 96375; 97162; 97165; 97530; 99284; A4218; A4222; C9113; S0028; J0131; J1170; J1335; J1940; J2175; J2270; J2405; J3475; J3490; J7050; J7512